=== PATIENT | female | born 1980 | race Caucasian/White ===

== ENCOUNTER 2022-07-19 10:51 | Outpatient (CLI) | payer BC ==
--- NOTE | 2022-07-19 16:13 | XRAY Report ---
PROCEDURE: Wrist 4 View RT INDICATIONS: PAIN IN RIGHT WRIST TECHNIQUE: 4 views of the wrist were acquired. COMPARISON: None FINDINGS: Bones: Mildly displaced, nonangulated, extra articular fracture of the radial styloid. Scaphoid view: No displaced scaphoid fracture. Soft tissues: No suspicious soft tissue calcifications. IMPRESSION: Mildly displaced, nonangulated, extra articular fracture of the radial styloid. Reviewed by: Raymundo Herrera on 07/19/2022 12:56 PM [facility] Approved by: Raymundo Herrera on 07/19/2022 12:56 PM [facility] Station ID: [id number]
== END 2022-07-19 10:52 | disposition home or self-care (01) ==
LOC: DI 10:51
PROVIDERS: ATTEND Physician Assistant
DX: S52.511A Displaced fracture of right radial styloid process, initial encounter for closed fracture (principal)

== ENCOUNTER 2022-07-24 16:28 | Outpatient (CLI) | payer BC ==
--- NOTE | 2022-07-24 15:33 | XRAY Report ---
PROCEDURE: Wrist 3 View RT INDICATIONS: RIGHT WRIST FRACTURE TECHNIQUE: 4 views of the wrist were acquired. COMPARISON: 07/19/2022 FINDINGS: Bones: No fractures or dislocations. No suspicious bony lesions. Comminuted fracture involving the distal radius shows remodeling the fracture lines suggestion of early callus Soft tissues: No suspicious soft tissue calcifications. IMPRESSION: Healing comminuted intra-articular distal radial fracture Reviewed by: Abdias Lozano MD on 07/24/2022 2:32 PM [facility] Approved by: Abdias Lozano MD on 07/24/2022 2:32 PM [facility] Station ID: [id number]
== END 2022-07-24 16:31 | disposition home or self-care (01) ==
LOC: DI.WOS 16:28
PROVIDERS: ATTEND Orthopaedic Surgery
DX: S52.571D Other intraarticular fracture of lower end of right radius, subsequent encounter for closed fracture with routine healing (principal)

== ENCOUNTER → 2022-07-31 13:37 | Outpatient (CLI) | payer BC ==
--- NOTE | 2022-07-31 11:17 | XRAY Report ---
PROCEDURE: Wrist 3 View RT INDICATIONS: RIGHT WRIST PAIN TECHNIQUE: 3 views of the wrist were acquired. COMPARISON: 07/19/2022, 07/24/2022 FINDINGS: Bones: Subacute impacted fracture of the distal radius extending to the articular surface. No signifi cant change. No other fractures or dislocations. Soft tissues: No suspicious soft tissue calcifications. IMPRESSION: Subacute impacted fracture of the distal radius extending to the articular surface, as before. Reviewed by: Norman Snyder MD on 07/31/2022 11:15 AM PST Approved by: Norman Snyder MD on 07/31/2022 11:15 AM PST Station ID: [id number]
== END | disposition home or self-care (01) ==
LOC: DI.WOS 13:37
PROVIDERS: ATTEND Orthopaedic Surgery
DX: S52.531A Colles' fracture of right radius, initial encounter for closed fracture (principal)

== ENCOUNTER 2022-08-31 08:42 | Outpatient (CLI) | payer BC ==
--- NOTE | 2022-08-31 09:49 | XRAY Report ---
PROCEDURE: Wrist 3 View RT INDICATIONS: RIGHT WRIST FRACTURE TECHNIQUE: 3 views of the wrist were acquired. COMPARISON: X-ray right wrist, 07/19/2022, 07/24/2022 and 07/31/2022. FINDINGS: Bones: There is a healing fracture of the distal radial metaphysis. The alignment is stable. No susp icious bony lesions. Soft tissues: No suspicious soft tissue calcifications. IMPRESSION: Healing distal radial metaphyseal fracture. Reviewed by: Ghanshyam Chacon MD on 08/31/2022 9:48 AM PDT Approved by: Ghanshyam Chacon MD on 08/31/2022 9:48 AM PDT Station ID: [id number]
== END 2022-08-31 08:44 | disposition home or self-care (01) ==
LOC: DI.WOS 08:42
PROVIDERS: ATTEND Orthopaedic Surgery
DX: S52.531D Colles' fracture of right radius, subsequent encounter for closed fracture with routine healing (principal)